=== PATIENT | female | born 1945 | race Caucasian/White ===

== ENCOUNTER 2017-03-09 10:44 | Outpatient (CLI) | payer MEDICARE ==
[2017-03-09 16:32] LABS: #Basophils 0.1 thou/uL (0.0-0.2); #Eosinphils 0.1 thou/uL (0.0-0.7); #Lymphocytes 1.8 thou/uL (1.20-3.40); #Monocytes 0.4 thou/uL (0.11-0.59); #Neutrophils 3.8 thou/uL (1.40-6.50); %Basophils 1.6 % (0.0-1.0); %Eosinophils 1.4 % (0.0-10.0); %Lymphocytes 29.3 % (21.0-51.0); %Monocytes 6.4 % (0.0-10.0); %Neutrophils 61.2 % (42.0-75.0); Hemoglobin 15.6 g/dL (12.0-16.0); Mean Corpuscular Hemoglobin 32.4 pg (27.0-31.0); Mean Corpuscular Volume 95.3 fl (81.0-99.0); Mean Platelet Volume 6.4 fL (7.4-10.4); Platelet Count 306 thou/uL (130-400); Red Blood Cell (RBC) Count 4.81 mill/uL (4.20-5.40); White Blood Cell (WBC) Count 6.2 thou/uL (4.8-10.8)
[2017-03-09 16:51] LABS: ALT (SGPT) 36 U/L (8-55); AST (SGOT) 21 U/L (5-34); Albumin 4.2 g/dL (3.4-4.8); Alkaline Phosphatase 80 U/L (40-150); Anion Gap 12 mmol/L (10-20); BUN (Urea Nitrogen) 10 mg/dL (9.8-20.1); Calc. Creatinine Clearance 0 mL/min (70-130); Calcium 9.6 mg/dL (7.8-10.44); Carbon Dioxide 28 mmol/L (23-31); Cardiac Risk 3.8 (Less than 4.5); Chloride 106 mmol/L (98-107); Cholesterol 166 mg/dl (< 200 Desired); Estimated GFR-MDRD 86; Glucose 149 mg/dL (80-115); HDL Cholesterol 44 mg/dL (>60 Neg Risk); LDL Cholesterol, Calculated 104 mg/dL; Potassium 4.9 mmol/L (3.5-5.1); Protein, Total 6.2 g/dL (6.0-8.3); Sodium 141 mmol/L (136-145); Triglycerides 90 mg/dL (Less than 150)
[2017-03-09 16:53] LABS: Hemoglobin A1c 6.9 % (4.0-6.0)
== END 2017-03-09 10:45 | disposition home or self-care (01) ==
LOC: LABLEX 10:44
PROVIDERS: ATTEND Family Medicine
DX: E78.5 Hyperlipidemia, unspecified (principal); E11.9 Type 2 diabetes mellitus without complications; R79.89 Other specified abnormal findings of blood chemistry
CPT/HCPCS: 80053; 80061; 83036; 84443; 85025

== ENCOUNTER 2018-07-04 11:35 | Outpatient (CLI) | payer MEDICARE ==
--- NOTE | 2018-07-04 14:13 | RAD ---
2 VIEWS RIGHT HUMERUS: Date: 07/04/18 COMPARISON: None. HISTORY: Pain, no history of trauma. FINDINGS: No acute osseous abnormality noted. IMPRESSION: Unremarkable 2 view examination of right humerus. POS: [facility]
== END 2018-07-04 11:36 | disposition home or self-care (01) ==
LOC: BURRAD 11:35
PROVIDERS: ATTEND Physician Assistant
DX: M79.621 Pain in right upper arm (principal)

== ENCOUNTER 2019-08-25 13:04 | Emergency (ER) | payer MEDICARE ==
[2019-08-25] MEDS ORDERED: Acetaminophen 325 MG TAB ONE (14:49)
[2019-08-25] MEDS ORDERED: Oseltamivir 75 MG CAP ONE (14:49)
--- NOTE | 2019-08-25 15:17 | RAD ---
CHEST 2 VIEWS: Date: 08/25/2019 Comparison made with prior chest films from 2016 and 2018. No major lobar infiltrates were seen. The lungs are mildly hyperexpanded. A little haziness just daren cent to the right and left heart borders is similar to what it look like as far back as 2016, so I am hard-pressed to confirm any of these as acute infiltrates. There is certainly no major lobar infiltr ate. There are no effusions. IMPRESSION: Very minor prominence of markings on each side of the heart, but not substantially different than sev eral older films. Hyperinflation of the lungs. POS: [facility]
== END 2019-08-25 15:20 | disposition home or self-care (01) ==
LOC: BURERS 13:04
DX: J11.1 Influenza due to unidentified influenza virus with other respiratory manifestations (principal); J44.9 Chronic obstructive pulmonary disease, unspecified; Z87.891 Personal history of nicotine dependence; Z79.51 Long term (current) use of inhaled steroids; Z79.899 Other long term (current) drug therapy
CPT/HCPCS: 71046

== ENCOUNTER 2019-10-20 11:31 | Outpatient (CLI) | payer MEDICARE ==
--- NOTE | 2019-10-20 19:32 | RAD ---
LEFT HIP THREE VIEWS: 10/20/19 No fracture, dislocation, or joint space narrowing was seen. The bony pelvis appears intact. The SI j oints are symmetrical and the symphysis shows no widening or offset. IMPRESSION: No acute bony findings. POS: [facility]
== END 2019-10-20 11:32 | disposition home or self-care (01) ==
LOC: BURRAD 11:31
PROVIDERS: ATTEND Nurse Practitioner
DX: S76.012A Strain of muscle, fascia and tendon of left hip, initial encounter (principal)

== ENCOUNTER 2021-02-15 11:07 | Emergency (ER) | payer MEDICARE | END 2021-02-15 12:40 | disposition home or self-care (01) | LOC: BURERS 11:07 | DX: J44.1 Chronic obstructive pulmonary disease with (acute) exacerbation (principal); B34.9 Viral infection, unspecified; Z87.891 Personal history of nicotine dependence | CPT/HCPCS: 71046; 87804 ==

== ENCOUNTER 2021-03-26 11:04 | Outpatient (CLI) | payer MEDICARE | END 2021-03-26 11:05 | disposition home or self-care (01) | LOC: BURRAD 11:04 | PROVIDERS: ATTEND Nurse Practitioner | DX: M17.0 Bilateral primary osteoarthritis of knee (principal) ==

== ENCOUNTER 2021-08-01 11:51 | Inpatient (IN) | payer MEDICARE ==
[2021-08-01] MEDS ORDERED: Acetaminophen 500 MG TAB ONE (12:32)
[2021-08-01 12:53] LABS: Band 8 % (5-11); Hemoglobin 14.4 g/dL (12.0-16.0); Lymphocytes 6 % (21-51); MDiff Complete? YES; Mean Corpuscular HGB CONC 32.3 g/dL (32.0-36.0); Mean Corpuscular Hemoglobin 31.6 pg (27.0-31.0); Monocytes 5 % (0-10); Neutrophil 81 % (42-75); Platelet Count 269 thou/uL (130-400); RBC Distribution Width 11.8 % (11.5-14.5); Red Blood Cell (RBC) Count 4.55 mill/uL (4.20-5.40); Vacuoles SLIGHT; White Blood Cell (WBC) Count 15.8 thou/uL (4.8-10.8)
[2021-08-01 13:02] LABS: ALT (SGPT) 35 U/L (8-55); AST (SGOT) 39 U/L (5-34); Albumin 3.8 g/dL (3.4-4.8); Alkaline Phosphatase 71 U/L (40-110); Anion Gap 14 mmol/L (10-20); BUN (Urea Nitrogen) 12 mg/dL (9.8-20.1); Bilirubin, Total 1.8 mg/dL (0.2-1.2); Calc. Creatinine Clearance 0 mL/min (70-130); Calcium 9.2 mg/dL (7.8-10.44); Carbon Dioxide 21 mmol/L (23-31); Chloride 106 mmol/L (98-107); Glucose 179 mg/dL (83-110); Potassium 4.3 mmol/L (3.5-5.1); Protein, Total 6.8 g/dL (5.8-8.1); Sodium 137 mmol/L (136-145)
[2021-08-01 13:34] LABS: SARS-CoV-2 NAA Rapid Test Not Detected (NotDetected)
[2021-08-01] MEDS ORDERED: Sodium Chloride 0.9% 100 ML ONE (14:08)
[2021-08-01] MEDS ORDERED: cefTRIAXone\\ROCEPHIN 2 GM VIAL ONE (14:08)
[2021-08-01] MEDS ORDERED: methylPREDNISolone Sod Succ/PF 125 MG/2 ML VIAL ONE (14:08)
[2021-08-01] MEDS ORDERED: Azithromycin 250 MG TAB ONE ×2 (15:14→15:23)
[2021-08-01] MEDS ORDERED: Albuterol Sulfate 2.5 mg/3 ml Neb NEB PRN (16:59)
[2021-08-01] MEDS ORDERED: Dextrose 5 %-0.45 % NaCl 1,000 ML IV SCH (17:00)
[2021-08-01] MEDS ORDERED: Ondansetron ODT 4 MG TAB PO PRN (17:00)
[2021-08-01] MEDS ORDERED: Ondansetron PF 4 MG/2 ML Vial IVP PRN (17:00)
[2021-08-01] MEDS ORDERED: Ondansetron ODT 4 MG TAB SL PRN (17:00)
[2021-08-01] MEDS ORDERED: FLU VACC QS2021-22(65YR UP)/PF 240 MCG/0.7 ML SYRINGE IM ONE (17:45)
[2021-08-01] MEDS ORDERED: Acetaminophen 650 MG Suppository PR PRN (19:04)
[2021-08-01] MEDS ORDERED: Bisacodyl 10 MG SUPP PR PRN (19:04)
[2021-08-01] MEDS ORDERED: Sodium Chloride 0.9% 1,000 ML IV SCH (19:15)
[2021-08-01] MEDS ORDERED: Azithromycin 500 MG in Sodium Chloride 0.9% 250 ML 250 ML IVPB SCH (20:00)
[2021-08-01] MEDS: Sodium Chloride 0.9% 1,000 ML IV SCH (20:01)
[2021-08-01] MEDS ORDERED: DISK W DE IH SCH (21:00)
[2021-08-01] MEDS ORDERED: FLUTICASONE IH SCH (21:00)
[2021-08-01] MEDS ORDERED: [UNRECOGNIZED DRUG - OTHER] IH SCH (21:00)
[2021-08-01] MEDS: Azithromycin 500 MG in Sodium Chloride 0.9% 250 ML 250 ML IVPB SCH (21:00)
[2021-08-01] MEDS: Famotidine 20 MG TAB PO SCH (21:00)
[2021-08-01] MEDS ORDERED: SALMETEROL IH SCH (21:00)
[2021-08-02 05:17] LABS: ALT (SGPT) 48 U/L (8-55); AST (SGOT) 32 U/L (5-34); Albumin 3.6 g/dL (3.4-4.8); Alkaline Phosphatase 73 U/L (40-110); Anion Gap 12 mmol/L (10-20); BUN (Urea Nitrogen) 10 mg/dL (9.8-20.1); Bilirubin, Total 0.6 mg/dL (0.2-1.2); Calc. Creatinine Clearance 64 mL/min (70-130); Calcium 9.3 mg/dL (7.8-10.44); Carbon Dioxide 25 mmol/L (23-31); Chloride 111 mmol/L (98-107); Globulin 2.5 g/dL (2.4-3.5); Glucose 232 mg/dL (83-110); Potassium 4.4 mmol/L (3.5-5.1); Protein, Total 6.1 g/dL (5.8-8.1); Sodium 144 mmol/L (136-145)
[2021-08-02 05:20] LABS: Hemoglobin 14.1 g/dL (12.0-16.0); Mean Corpuscular HGB CONC 33.8 g/dL (32.0-36.0); Mean Corpuscular Hemoglobin 32.5 pg (27.0-31.0); Mean Corpuscular Volume 96.1 fL (78.0-98.0); Mean Platelet Volume 6.2 fL (7.4-10.4); Platelet Count 254 thou/uL (130-400); RBC Distribution Width 12.1 % (11.5-14.5); Red Blood Cell (RBC) Count 4.33 mill/uL (4.20-5.40); White Blood Cell (WBC) Count 20.8 thou/uL (4.8-10.8)
[2021-08-02 06:02] LABS: Band 30 % (5-11); Lymphocytes 3 % (21-51); MDiff Complete? YES; Metamyelocyte 2 % (0-0); Monocytes 3 % (0-10); Neutrophil 61 % (42-75); Platelet Morphology Comment Appears Adequate; RBC Morphology Normal
[2021-08-02] MEDS: Mometasone/Formoterol 200/5 60 PUFF INH SCH ×2 (06:18→18:49)
[2021-08-02] MEDS ORDERED: Azithromycin 250 MG TAB PO SCH (09:00)
[2021-08-02] MEDS: Famotidine 20 MG TAB PO SCH ×2 (09:30→20:37)
[2021-08-02] MEDS: Enoxaparin Sodium 30 MG/0.3 ML SYRINGE SC SCH (09:30)
[2021-08-02] MEDS: Sodium Chloride 0.9% 1,000 ML IV SCH (11:00)
[2021-08-02] MEDS ORDERED: cefTRIAXone\\ROCEPHIN 1 GM in Sodium Chloride 0.9% 100 ML IVPB SCH (14:00)
[2021-08-02] MEDS: cefTRIAXone\\ROCEPHIN 2 GM in Sodium Chloride 0.9% 100 ML IVPB SCH (14:10)
[2021-08-02] MEDS ORDERED: Azithromycin 500 MG in Sodium Chloride 0.9% 250 ML 250 ML IVPB SCH (15:00)
[2021-08-02] MEDS: Acetaminophen 325 MG TAB PO PRN (17:11)
[2021-08-02] MEDS: Azithromycin 500 MG in Sodium Chloride 0.9% 250 ML 250 ML IVPB SCH (20:37)
[2021-08-03 04:56] LABS: #Basophils 0.1 thou/uL (0.0-0.2); #Lymphocytes 1.8 thou/uL (1.20-3.40); #Monocytes 0.7 thou/uL (0.11-0.59); #Neutrophils 14.4 thou/uL (1.40-6.50); %Basophils 0.3 % (0.0-1.0); %Eosinophils 0.2 % (0.0-10.0); %Lymphocytes 10.3 % (21.0-51.0); %Monocytes 3.8 % (0.0-10.0); %Neutrophils 85.3 % (42.0-75.0); Hemoglobin 12.9 g/dL (12.0-16.0); Mean Corpuscular HGB CONC 33.9 g/dL (32.0-36.0); Mean Corpuscular Hemoglobin 32.5 pg (27.0-31.0); Mean Platelet Volume 6.5 fL (7.4-10.4); Platelet Count 269 thou/uL (130-400); RBC Distribution Width 11.8 % (11.5-14.5); Red Blood Cell (RBC) Count 3.96 mill/uL (4.20-5.40); White Blood Cell (WBC) Count 16.9 thou/uL (4.8-10.8)
[2021-08-03 05:20] LABS: ALT (SGPT) 43 U/L (8-55); AST (SGOT) 28 U/L (5-34); Albumin 3.3 g/dL (3.4-4.8); Alkaline Phosphatase 65 U/L (40-110); Anion Gap 11 mmol/L (10-20); BUN (Urea Nitrogen) 11 mg/dL (9.8-20.1); Bilirubin, Total 0.4 mg/dL (0.2-1.2); Calc. Creatinine Clearance 67 mL/min (70-130); Calcium 9.3 mg/dL (7.8-10.44); Carbon Dioxide 27 mmol/L (23-31); Chloride 110 mmol/L (98-107); Globulin 2.1 g/dL (2.4-3.5); Glucose 133 mg/dL (83-110); Potassium 4.1 mmol/L (3.5-5.1); Protein, Total 5.4 g/dL (5.8-8.1); Sodium 144 mmol/L (136-145)
[2021-08-03] MEDS: Mometasone/Formoterol 200/5 60 PUFF INH SCH ×2 (06:12→18:17)
[2021-08-03] MEDS: Famotidine 20 MG TAB PO SCH ×2 (08:13→20:54)
[2021-08-03] MEDS: Enoxaparin Sodium 30 MG/0.3 ML SYRINGE SC SCH (08:13)
[2021-08-03] MEDS: cefTRIAXone\\ROCEPHIN 2 GM in Sodium Chloride 0.9% 100 ML IVPB SCH (13:41)
[2021-08-03] MEDS: Acetaminophen 325 MG TAB PO PRN (17:37)
[2021-08-03] MEDS: Azithromycin 500 MG in Sodium Chloride 0.9% 250 ML 250 ML IVPB SCH (20:53)
[2021-08-03] MEDS ORDERED: Azithromycin 500 MG VIAL ONE (20:57)
[2021-08-03] MEDS: Guaifenesin DM 100-10/5 ML UDCUP PO PRN (21:04)
[2021-08-04 05:13] LABS: #Basophils 0.1 thou/uL (0.0-0.2); #Eosinphils 0.1 thou/uL (0.0-0.7); #Lymphocytes 1.4 thou/uL (1.20-3.40); #Monocytes 0.6 thou/uL (0.11-0.59); #Neutrophils 7.8 thou/uL (1.40-6.50); %Basophils 0.6 % (0.0-1.0); %Eosinophils 0.8 % (0.0-10.0); %Lymphocytes 13.8 % (21.0-51.0); %Monocytes 6.5 % (0.0-10.0); %Neutrophils 78.3 % (42.0-75.0); Mean Corpuscular HGB CONC 33.8 g/dL (32.0-36.0); Mean Corpuscular Hemoglobin 32.5 pg (27.0-31.0); Mean Platelet Volume 6.5 fL (7.4-10.4); Platelet Count 270 thou/uL (130-400); RBC Distribution Width 11.5 % (11.5-14.5); Red Blood Cell (RBC) Count 4.01 mill/uL (4.20-5.40)
[2021-08-04 05:26] LABS: ALT (SGPT) 39 U/L (8-55); AST (SGOT) 21 U/L (5-34); Albumin 3.4 g/dL (3.4-4.8); Alkaline Phosphatase 78 U/L (40-110); Anion Gap 12 mmol/L (10-20); BUN (Urea Nitrogen) 7 mg/dL (9.8-20.1); Bilirubin, Total 0.6 mg/dL (0.2-1.2); Calc. Creatinine Clearance 72 mL/min (70-130); Calcium 9.2 mg/dL (7.8-10.44); Carbon Dioxide 28 mmol/L (23-31); Chloride 107 mmol/L (98-107); Globulin 2.5 g/dL (2.4-3.5); Glucose 120 mg/dL (83-110); Potassium 3.5 mmol/L (3.5-5.1); Protein, Total 5.9 g/dL (5.8-8.1); Sodium 143 mmol/L (136-145)
[2021-08-04] MEDS: Mometasone/Formoterol 200/5 60 PUFF INH SCH ×2 (06:21→18:24)
[2021-08-04] MEDS: Famotidine 20 MG TAB PO SCH ×2 (09:13→21:16)
[2021-08-04] MEDS: cefTRIAXone\\ROCEPHIN 2 GM in Sodium Chloride 0.9% 100 ML IVPB SCH (13:06)
[2021-08-04] MEDS: Acetaminophen 325 MG TAB PO PRN ×2 (13:16→21:14)
[2021-08-04 19:42] VITALS: BMI 23.8
[2021-08-04] MEDS: Guaifenesin DM 100-10/5 ML UDCUP PO PRN (21:14)
[2021-08-04] MEDS: Azithromycin 500 MG in Sodium Chloride 0.9% 250 ML 250 ML IVPB SCH (21:16)
[2021-08-05] MEDS: Mometasone/Formoterol 200/5 60 PUFF INH SCH ×2 (06:27→18:19)
[2021-08-05] MEDS: Famotidine 20 MG TAB PO SCH ×2 (08:54→21:40)
[2021-08-05] MEDS: cefTRIAXone\\ROCEPHIN 2 GM in Sodium Chloride 0.9% 100 ML IVPB SCH (13:29)
[2021-08-05] MEDS: Acetaminophen 325 MG TAB PO PRN (21:39)
[2021-08-05] MEDS: Azithromycin 500 MG in Sodium Chloride 0.9% 250 ML 250 ML IVPB SCH (21:43)
[2021-08-05] MEDS: Guaifenesin DM 100-10/5 ML UDCUP PO PRN (21:48)
[2021-08-06] MEDS: Mometasone/Formoterol 200/5 60 PUFF INH SCH (06:06)
[2021-08-06] MEDS: Famotidine 20 MG TAB PO SCH (08:32)
[2021-08-06] MEDS: Guaifenesin DM 100-10/5 ML UDCUP PO PRN (11:36)
[2021-08-06] MEDS: Acetaminophen 325 MG TAB PO PRN (11:36)
[2021-08-06 13:05] VITALS: BP 175/72; TEMP 98.2
== END 2021-08-06 13:25 | disposition home or self-care (01) | DRG 190 ==
LOC: BURERS 11:51 → BURMED 15:06
PROVIDERS: ADMIT Family Medicine; ATTEND Family Medicine
DX: J44.1 Chronic obstructive pulmonary disease with (acute) exacerbation (principal); J18.9 Pneumonia, unspecified organism; Z20.822 Contact with and (suspected) exposure to COVID-19; J44.0 Chronic obstructive pulmonary disease with (acute) lower respiratory infection; R91.1 Solitary pulmonary nodule; Z90.710 Acquired absence of both cervix and uterus; Z90.89 Acquired absence of other organs; Z79.51 Long term (current) use of inhaled steroids; Z87.891 Personal history of nicotine dependence
CPT/HCPCS: 0240U; 36415; 71045; 71046; 80053; 83605; 85025; 87040; 94640; 94664; 94760; 96365; 96375; J0456; J0696; J1650; J2930; J3490; J7042; J7050; J7611; J7620

== ENCOUNTER 2022-06-26 12:27 | Emergency (ER) | payer MEDICARE ==
[2022-06-26] MEDS ORDERED: Acetaminophen 500 MG TAB ONE (13:00)
[2022-06-26 13:57] LABS: SARS-CoV-2 NAA Rapid Test DETECTED (NotDetected)
[2022-06-26 14:07] LABS: Bilirubin Negative (Negative); Blood, Urine Negative (Negative); Clarity Clear (Clear); Glucose, Urine (Dipstick) 100 mg/dL (Negative); Ketone, Urine Negative (Negative); Leukocyte Trace (Negative); Nitrite Negative (Negative); Protein, Urine (Dipstick) Negative (Neg-Trace); Urobilinogen 0.2 mg/dL (Less than 2); pH, Urine 5.5 (5.0-9.0)
[2022-06-26 14:11] LABS: RBC/HPF 0-3 HPF (0-3); Squamous Epithelial 0-3 HPF (0-3)
[2022-06-26 14:12] LABS: Bacteria/HPF Rare-Few HPF (None Seen)
== END 2022-06-26 14:45 | disposition home or self-care (01) ==
LOC: BURERS 12:27
DX: U07.1 COVID-19 (principal); J44.9 Chronic obstructive pulmonary disease, unspecified; Z87.891 Personal history of nicotine dependence; Z79.899 Other long term (current) drug therapy
CPT/HCPCS: 0241U; 71045; 81003; 81015

== ENCOUNTER 2023-07-19 15:34 | Observation (INO) | payer MEDICARE ==
[2023-07-19] MEDS ORDERED: Ipratropium/Albuterol 3 ML NEB ONE (15:52)
[2023-07-19] MEDS ORDERED: Albuterol 2.5 MG/0.5 ML NEB ONE ×2 (15:52→16:39)
[2023-07-19] MEDS ORDERED: predniSONE 20 MG TAB ONE (16:42)
[2023-07-19 17:30] LABS: #Basophils 0.1 thou/uL (0.0-0.2); #Lymphocytes 1.1 thou/uL (1.20-3.40); #Monocytes 0.2 thou/uL (0.11-0.59); #Neutrophils 6.7 thou/uL (1.40-6.50); %Basophils 0.7 % (0.0-1.0); %Eosinophils 0.2 % (0.0-10.0); %Lymphocytes 13.8 % (21.0-51.0); %Monocytes 2.5 % (0.0-10.0); %Neutrophils 82.8 % (42.0-75.0); Hematocrit 41.6 % (36.0-47.0); Hemoglobin 13.5 g/dL (12.0-16.0); Mean Corpuscular HGB CONC 32.4 g/dL (32.0-36.0); Mean Corpuscular Hemoglobin 31.5 pg (27.0-31.0); Mean Corpuscular Volume 97.2 fl (78.0-98.0); Mean Platelet Volume 6.4 fL (7.4-10.4); Platelet Count 302 10x3/uL (130-400); RBC Distribution Width 11.5 % (11.5-14.5); Red Blood Cell (RBC) Count 4.28 mill/uL (4.20-5.40)
[2023-07-19 17:48] LABS: ALT (SGPT) 44 U/L (8-55); AST (SGOT) 31 U/L (5-34); Albumin 4.1 g/dL (3.4-4.8); Alkaline Phosphatase 69 U/L (40-110); Anion Gap 17 mmol/L (10-20); BUN (Urea Nitrogen) 17 mg/dL (9.8-20.1); Bilirubin, Total 0.6 mg/dL (0.2-1.2); Calc. Creatinine Clearance 0 mL/min (70-130); Carbon Dioxide 25 mmol/L (23-31); Chloride 100 mmol/L (98-107); Estimated GFR 74; Globulin 2.8 g/dL (2.4-3.5); Glucose 340 mg/dL (83-110); Protein, Total 6.9 g/dL (5.8-8.1); Sodium 138 mmol/L (136-145)
[2023-07-19 18:39] LABS: SARS-CoV-2 NAA Rapid Test Not Detected (NotDetected)
[2023-07-19] MEDS: Mometasone 100 MCG/PUFF (1 INHALER) INH SCH (20:23)
[2023-07-19] MEDS ORDERED: Albuterol 200 PUFF (6.7GM INHALER) INH PRN (20:31)
[2023-07-19] MEDS ORDERED: Albuterol 200 PUFF (6.7GM INHALER) INH SCH (21:00)
[2023-07-19] MEDS ORDERED: QUEtiapine 25 MG TAB PO SCH (21:00)
[2023-07-20] MEDS: Ipratropium/Albuterol 3 ML NEB NEB SCH ×2 (05:18→11:48)
[2023-07-20] MEDS ORDERED: Albuterol 200 PUFF (6.7GM INHALER) INH SCH (07:00)
[2023-07-20] MEDS: Mometasone 100 MCG/PUFF (1 INHALER) INH SCH (08:41)
[2023-07-20] MEDS ORDERED: Cholecalciferol (Vitamin D3) 5,000 UNITS CAPSULE PO SCH (09:00)
[2023-07-20] MEDS ORDERED: Cyanocobalamin (Vitamin B-12) 1,000 MCG TAB PO SCH (09:00)
[2023-07-20] MEDS ORDERED: glipiZIDE 5 MG TAB PO SCH (09:00)
[2023-07-20] MEDS ORDERED: Aspirin 81 mg Enteric Coated Tablet PO SCH (09:00)
[2023-07-20] MEDS ORDERED: PARoxetine 20 MG TAB PO SCH (09:00)
[2023-07-20] MEDS ORDERED: Rosuvastatin 10 MG TAB PO SCH (09:00)
[2023-07-20 14:52] VITALS: BP 144/68; TEMP 98
[2023-07-22] MEDS ORDERED: FLU VACC QS2023(65UP)/MF59C/PF 60 MCG/0.5 ML SYRINGE IM ONE (09:00)
== END 2023-07-20 15:42 | disposition home or self-care (01) ==
LOC: BURERS 15:34 → BURMED 17:10
PROVIDERS: ADMIT Family Medicine; ATTEND Family Medicine
DX: J44.1 Chronic obstructive pulmonary disease with (acute) exacerbation (principal); E11.9 Type 2 diabetes mellitus without complications; E78.5 Hyperlipidemia, unspecified; F32.A Depression, unspecified; Z88.5 Allergy status to narcotic agent; Z88.8 Allergy status to other drugs, medicaments and biological substances; Z90.89 Acquired absence of other organs; Z90.710 Acquired absence of both cervix and uterus; Z87.891 Personal history of nicotine dependence; Z79.82 Long term (current) use of aspirin; Z79.899 Other long term (current) drug therapy
CPT/HCPCS: 36415; 71046; 80053; 85025; G0378; J7512; J7611; J7620; U0002